=== PATIENT | male | born 1990 | race African-American/Black ===

== ENCOUNTER 2017-07-04 18:06 | Emergency (ER) | payer OTHER ==
[2017-07-04 18:15] VITALS: BP 143/85; PULSE 94; TEMP 98; BMI 23.6
--- NOTE | 2017-07-04 18:38 | PDOC ---
History of Present Illness - General Chief Complaint: RX Refill Stated Complaint: RX REFILL History Source: Patient Exam Limitations: No Limitations - History of Present Illness Initial Comments: 07/04/17 18:33 27 yr male with history of chronic pain to left leg, back, states his doctor pain management sent his percocet prescription to the wrong pharmacy and would like another prescription for oxycodone 10mg tabs. Pt states he has chronic pain and has not had meds since April 2017. Pt denies nvd no fever, pt has chronic leg pain and neuropathy. Pt asking if I can find out where the medication was sent. 07/04/17 18:45 Past History - Past Medical History Allergies/Adverse Reactions: Allergies Allergy/AdvReac Type Severity Reaction Status Date / Time No Known Allergies Allergy Verified 07/04/17 18:15 Home Medications: Ambulatory Orders Gabapentin 400 mg PO ASDIR 07/04/17 Oxycodone HCl/Acetaminophen [Oxycodone-Acetaminophen 10-325] 1 each PO ASDIR 06/13 HTN: Yes Other medical history: PAIN - Surgical History Abdominal Surgery: Yes (RECONSTRUCTION) - Psycho/Social/Smoking Cessation Hx Suicidal Ideation: No Smoking History: Never smoked Information on smoking cessation initiated: No *Physical Exam - Vital Signs Last Vital Signs Temp Pulse Resp BP Pulse Ox 98 F 94 H 18 143/85 98 07/04/17 18:11 07/04/17 18:11 07/04/17 18:11 07/04/17 18:11 07/04/17 18:11 - Physical Exam General Appearance: Yes: Nourished, Appropriately Dressed. No: Mild Distress HEENT: positive: EOMI, ZBIGNIEW Respiratory/Chest: positive: Lungs Clear, Normal Breath Sounds Cardiovascular: positive: Regular Rhythm, Regular Rate Musculoskeletal: positive: Normal Inspection Extremity: positive: Other (left lower leg with prosthesis) Integumentary: positive: Normal Color, Dry, Warm Neurologic: positive: Fully Oriented, Alert, Normal Mood/Affect, Normal Response , Motor Strength 5/5 Medical Decision Making - Medical Decision Making 07/04/17 18:47 cc: "I need my pain meds" pt with chronic pain, left leg, low back followed by pain managment states he saw him tuesday and was told he was given prescriptions for gabapentin and oxycodone. Pt states [facility] and only gabapentin was there, no percocet. Pt refused to take the gabapentin, and is asking me to find out where the prescription was sent and if not to give him another prescription. pt is in no acute distress, is ambulating with a brisk steady gait carrying a backpack. I have discussed that I am unable to find out where another provider may have sent a prescription, I have verified the patient on [facility] and last script for pain meds was filled in April 2017. pt is at no risk for any withdrawl at this time as pt is with stable vitals and is in no distress. I have discussed that the best course of treatment would be to call his pain doctor tomorrow to find out where the medication was sent. Pt signed the dc papers and abruptly left the ER. 07/04/17 18:53 07/06/17 08:33 *DC/Admit/Observation/Transfer Diagnosis at time of Disposition: Chronic pain Qualifiers: Chronic pain type: chronic pain syndrome Qualified Code(s): G89.4 - Chronic pain syndrome - Discharge Dispostion Disposition: HOME Condition at time of disposition: Good - Referrals Referrals: Aiden Caldwell MD [Staff Physician] - - Patient Instructions Additional Instructions: please call your pain management tomorrow to let them know you were unable to get the oxycodone prescription that they sent today you can also follow with who is pain management in [place]
== END 2017-07-04 18:39 | disposition home or self-care (01) ==
LOC: JERFT 18:06 → JER 18:06 → JERFT 18:39
DX: Z76.0 Encounter for issue of repeat prescription (principal); G89.4 Chronic pain syndrome; M54.5 Low back pain; M79.605 Pain in left leg
CPT/HCPCS: 99281-25